=== PATIENT | female | born 1990 | race Two or more races ===

== ENCOUNTER → 2017-01-15 | Outpatient (REF) | payer OTHER | LOC: M SFHCLERA 17:06 | PROVIDERS: ATTEND Nurse Practitioner Family | DX: N89.8 Other specified noninflammatory disorders of vagina (principal) ==

== ENCOUNTER 2017-11-20 09:45 | Day surgery (SDC) | payer OTHER ==
[2017-11-20 10:45] LABS: HEMATOCRIT 41.1 % (36.0-47.0); HEMOGLOBIN 14.4 g/dl (12.0-15.5)
[2017-11-20 10:53] LABS: CONTROL LINE HCG INT CTR LINE PRESENT; HCG, SERUM QUALITATIVE NEGATIVE (NEGATIVE)
[2017-11-20] MEDS: LR 1,000 ML IV (11:05)
[2017-11-20] MEDS ORDERED: MIDAZOLAM INJ 2 MG/2 ML VIAL (J2250) As Ordered (11:56)
[2017-11-20] MEDS ORDERED: fentaNYL 100 MCG/2 ML INJECTION (J3010) As Ordered ×4 (11:56→15:00)
[2017-11-20] MEDS ORDERED: BUPIVACAINE HCL 0.25% 10 ML VIAL As Ordered (12:30)
[2017-11-20] MEDS ORDERED: ROCURONIUM BROMIDE 50 MG/5 ML VIAL As Ordered (13:04)
[2017-11-20] MEDS ORDERED: LIDOCAINE 2% INJ 100 MG/5 ML SDV (FOR ANES.) As Ordered (13:04)
[2017-11-20] MEDS ORDERED: KETOROLAC 60 MG/2 ML VIAL (J1885) As Ordered (13:04)
[2017-11-20] MEDS ORDERED: PROPOFOL 200 MG/20 ML VIAL As Ordered (13:04)
[2017-11-20] MEDS ORDERED: ONDANSETRON 4MG/2ML VIAL (J2405) As Ordered (13:05)
[2017-11-20] MEDS ORDERED: dexameTHASONE 4 MG/ML 1ML VIAL (J1100) As Ordered (13:05)
[2017-11-20] MEDS ORDERED: SUGAMMADEX SODIUM 500 MG/5 ML VIAL (BRIDION) As Ordered (13:34)
[2017-11-20] MEDS ORDERED: LR 1,000 ML IV (14:45)
[2017-11-20] MEDS ORDERED: ONDANSETRON 4MG/2ML VIAL (J2405) IV (14:45)
[2017-11-20] MEDS ORDERED: KETOROLAC 30 MG/ML VIAL (J1885) As Ordered (15:00)
[2017-11-20] MEDS: fentaNYL 100 MCG/2 ML INJECTION (J3010) IV (15:09)
[2017-11-20] MEDS: KETOROLAC 30 MG/ML VIAL (J1885) IV (15:12)
[2017-11-20] MEDS ORDERED: PERCOCET 5MG/325MG TAB PO (15:15)
== END 2017-11-20 16:35 | disposition home or self-care (01) ==
LOC: M SDC 09:45
DX: Z30.2 Encounter for sterilization (principal); K21.9 Gastro-esophageal reflux disease without esophagitis; F41.9 Anxiety disorder, unspecified; Z79.899 Other long term (current) drug therapy
CPT/HCPCS: 58661

== ENCOUNTER → 2018-09-01 | Outpatient (REF) | payer OTHER ==
[~2018-09-01] MED LIST: ALPR0.5T3; DEPO150I; VALA1TAB2; ZOLP5TAB
== END ==
LOC: M SFHCLERA 09:50
PROVIDERS: ATTEND Nurse Practitioner Family
DX: R53.81 Other malaise (principal)

== ENCOUNTER → 2018-12-01 | Outpatient (REF) | payer OTHER | LOC: M SFHCLERA 15:20 | PROVIDERS: ATTEND Nurse Practitioner Family | DX: J02.9 Acute pharyngitis, unspecified (principal) ==

== ENCOUNTER → 2019-02-27 | Outpatient (REF) | payer OTHER ==
[~2019-02-27] MED LIST changes: -VALA1TAB2; +VALA1TAB64
[2019-02-27 20:11] LABS: CHLAMYDIA DNA AMPLIFICATION NEGATIVE (NEGATIVE); GC DNA AMPLIFICATION NEGATIVE (NEGATIVE)
== END ==
LOC: M SFHCLERA 12:15
PROVIDERS: ATTEND Nurse Practitioner Family
DX: N89.8 Other specified noninflammatory disorders of vagina (principal)
CPT/HCPCS: 81002; 81025; 87070; 87077; 87086; 87661; G0463

== ENCOUNTER → 2019-05-26 | Outpatient (REF) | payer OTHER ==
[~2019-05-26] MED LIST changes: +VALA1TAB2; -VALA1TAB64
[2019-05-26 22:00] LABS: CHLAMYDIA DNA AMPLIFICATION NEGATIVE (NEGATIVE); GC DNA AMPLIFICATION NEGATIVE (NEGATIVE)
== END ==
LOC: M SFHCLERA 17:09
PROVIDERS: ATTEND Nurse Practitioner Family
DX: R30.9 Painful micturition, unspecified (principal); N89.8 Other specified noninflammatory disorders of vagina
CPT/HCPCS: 81002; 81025; 87070; 87077; 87086; 87186; 87661; G0463

== ENCOUNTER → 2019-07-18 | Outpatient (REF) | payer OTHER ==
[~2019-07-18] MED LIST changes: -VALA1TAB2; +VALA1TAB64
[2019-07-18 11:57] LABS: MONO REFLEX EBV COMP NEGATIVE (NEGATIVE)
[2019-07-19 15:07] LABS: EBV AB TO NUCLEAR ANTIGEN >600.0 U/mL (0.0-17.9); EBV VIRAL CAPSID AG IgM <36.0 U/mL (0.0-35.9)
== END ==
LOC: M LABDRAW1 09:36
PROVIDERS: ATTEND Physician Assistant Medical
DX: R53.81 Other malaise (principal)

== ENCOUNTER → 2019-08-28 | Outpatient (CLI) | payer OTHER, SELFPAY ==
[~2019-08-28] MED LIST changes: +GASTROGRAFIN SOLUTION 30ML (Q9963) As Ordered ONE; +ISOVUE-370 76% 100ML VIAL (Q9967) As Ordered ONE; +VALA1TAB5; -VALA1TAB64
--- NOTE | 2019-08-29 09:03 | REP ---
CT PELVIS WITH IV CONTRAST: HISTORY: Right lower quadrant abdominal swelling and mass. Abdominal wall mass right lower quadrant. The patient gives a history of prior tubal ligation and section. CT CONTRAST DOSE: 100 mL of intravenous Isovue 370 is administered. No comparison study. CT FINDINGS: Digital preliminary shoe planner radiograph shows an unremarkable bowel gas pattern. Axial CT images demonstrate an irregular small soft tissue mass in the deep subcutaneous fat in the right inguinal region anterior to the abdominal wall. This measures 2.6 x 2.2 x 2.5 cm in diameter. It appears to extend to the superficial border of the anterior abdominal wall musculature. It has somewhat irregular margins and appears to show mild enhancement homogeneously. 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 There is no evidence of abdominal wall defect or hernia. No ovarian or uterine lesion is seen. Urinary bladder is unremarkable. Small and large bowel loops are unremarkable. Normal appendix is visible in the right lower quadrant. Bone window settings demonstrate a unilateral pars defect on the right and L5 without spondylolisthesis. No other bony abnormality is seen. IMPRESSION: There is a 2.6 cm irregularly shaped enhancing soft tissue mass in the deep subcutaneous fat of the right inguinal region most consistent with abdominal desmoid tumor. Differential possibilities may include extra-abdominal endometriosis implant. Otherwise negative. Electronically Signed by Ken Lawson MD 08/29/2019 09:43 A
== END ==
LOC: M RAD 16:03
PROVIDERS: ATTEND Surgery
DX: R19.03 Right lower quadrant abdominal swelling, mass and lump (principal)
CPT/HCPCS: 72193; Q9963; Q9967

== ENCOUNTER → 2019-10-08 | Outpatient (REF) | payer OTHER ==
[~2019-10-08] MED LIST changes: -ALPR0.5T3; +ALPR0.5T3 PO; -GASTROGRAFIN SOLUTION 30ML (Q9963) As Ordered ONE; +HYDR-643 PO; -ISOVUE-370 76% 100ML VIAL (Q9967) As Ordered ONE
== END ==
LOC: M LAB REF 16:51
PROVIDERS: ATTEND Family Medicine
DX: N76.0 Acute vaginitis (principal)

== ENCOUNTER → 2019-11-03 | Outpatient (CLI) | payer OTHER ==
[~2019-11-03] MED LIST changes: +ECOT81TA5 PO
== END ==
LOC: M LABSMTC 11:10
PROVIDERS: ATTEND Anesthesiology
DX: Z01.818 Encounter for other preprocedural examination (principal); Z11.59 Encounter for screening for other viral diseases

== ENCOUNTER 2019-11-06 05:59 | Day surgery (SDC) | payer OTHER ==
[~2019-11-06] VITALS: Ht 170.2 cm; Wt 95.0 kg
[~2019-11-06 05:59] MED LIST changes: +LR 1,000 ML IV ONE; +ceFAZolin SOD 1 GM in D5W MINI-BAG PLUS 50 ML IV ONE
[2019-11-06] MEDS ORDERED: LIDOCAINE 1% MDV 20ML VIAL SQ PRN (06:00)
[2019-11-06] MEDS ORDERED: ceFAZolin SOD 1 GM in D5W MINI-BAG PLUS 50 ML IV ONE (06:00)
[2019-11-06] MEDS ORDERED: LR 1,000 ML IV ONE (07:00)
[2019-11-06] MEDS ORDERED: LIDOCAINE 2% 100MG/5ML SDV (FOR ANES.) As Ordered ONE (07:27)
[2019-11-06] MEDS ORDERED: ROCURONIUM BROMIDE 50 MG/5 ML VIAL As Ordered ONE (07:28)
[2019-11-06] MEDS ORDERED: dexameTHASONE 4 MG/ML 1ML VIAL (J1100 PER 1MG) As Ordered ONE (07:28)
[2019-11-06] MEDS ORDERED: ONDANSETRON 4MG/2ML VIAL As Ordered ONE (07:28)
[2019-11-06] MEDS ORDERED: propofoL 200 MG/20 ML VIAL As Ordered ONE (07:28)
[2019-11-06] MEDS ORDERED: fentaNYL 250 MCG/5 ML INJECTION (J3010) As Ordered ONE (07:32)
[2019-11-06] MEDS ORDERED: MIDAZOLAM INJ 2MG/2ML VIAL (J2250 PER 1MG) As Ordered ONE (07:33)
[2019-11-06] MEDS ORDERED: BUPIVACAINE LIPOSOME/PF 1.3% 20ML VIAL (13.3MG/ML)(EXPAREL)(C9290 PER1MG) As Ordered ONE (07:50)
[2019-11-06] MEDS: BUPIVACAINE/EPIN 0.25% 30 ML VIAL As Ordered ONE ×2 (07:58→08:21)
[2019-11-06] MEDS ORDERED: ACETAMINOPHEN 1000MG 100ML IV BTL (OFIRMEV) (J0131 PER 10MG) As Ordered ONE (08:05)
[2019-11-06] MEDS ORDERED: SUGAMMADEX SODIUM 500 MG/5 ML VIAL (BRIDION) As Ordered ONE (08:05)
[2019-11-06] MEDS ORDERED: KETOROLAC 60 MG/2 ML VIAL As Ordered ONE (08:06)
[2019-11-06] MEDS ORDERED: HYDROMORPHONE HCL 0.5 MG/ 0.5 ML SYRINGE (J1170 PER 1) IV PRN (09:00)
[2019-11-06] MEDS ORDERED: ONDANSETRON 4MG/2ML VIAL IV PRN ×2 (09:00)
[2019-11-06] MEDS ORDERED: fentaNYL 100 MCG/2 ML INJECTION (J3010) IV PRN (09:00)
[2019-11-06] MEDS ORDERED: LR 1,000 ML IV SCH ×2 (09:00)
[2019-11-06] MEDS ORDERED: PERCOCET 5MG/325MG TAB PO PRN ×2 (09:00→10:15)
--- NOTE | 2019-11-06 09:05 | RO ---
DATE OF PROCEDURE: 11/06/2019 PREOPERATIVE DIAGNOSIS: Right lower quadrant abdominal wall mass, question endometrioma. POSTOPERATIVE DIAGNOSIS: Right lower quadrant abdominal wall mass, question endometrioma. PROCEDURE: Excision of right lower quadrant abdominal wall mass. SURGEON: Brooks Ross MD [employer] VICE PRESIDENT: Zara Cota NP (provided retraction, exposure and visualization. ESTIMATED BLOOD LOSS (EBL): Minimal. FLUIDS: Crystalloid. BRIEF PROCEDURE SUMMARY: The patient was brought to the operating room, was given general anesthesia. After adequate anesthesia and preoperative antibiotics were given, the patient was prepped and draped in the usual sterile fashion. Next an incision just above her (C) section incision was made on the right-hand side and electrocautery was used to cut through skin and subcutaneous tissue. Because of the thick wall of the abdominal fat in this area did need to extend the incision a little bit further to adequately get around this lesion. Using my hand/palpation I was stay able to stay outside of the dissection isolating the lesion from the surrounding tissue making sure that we had adequate margins around the area. Circumferentially, we went on this medial, inferior laterally and eventually when we get to the posterior aspect of this it was down to the level of the external oblique muscle fascia. However, it did not seem to extend through the muscle fascia. Thus, we are able to stay on the muscle fascia surface and remove the lesion in its entirety. The area was copiously irrigated until clear. The deep subcutaneous tissue was brought together with #2-0 Vicryl. #3-0 Vicryl was used to approximate the dermis. #4-0 Vicryl was used to approximate the skin. Steri-Strips and a dry sterile dressing was applied. The patient was awakened from her anesthesia, extubated, brought to the recovery room awake, alert, hemodynamically stable. Sponge and needle counts correct times two.
[2019-11-06] MEDS ORDERED: oxyCODONE 5MG TAB PO PRN (10:15)
[2019-11-06 12:00] VITALS: BP 110/62
[2019-11-06] MEDS ORDERED: KETOROLAC 30 MG/ML 1ML VIAL IV SCH (14:00)
== END 2019-11-06 12:41 | disposition home or self-care (01) ==
LOC: M SDC 05:59
PROVIDERS: ATTEND Surgery
DX: N80.8 Other endometriosis (principal); K21.9 Gastro-esophageal reflux disease without esophagitis; D68.2 Hereditary deficiency of other clotting factors; L71.9 Rosacea, unspecified; F41.9 Anxiety disorder, unspecified; Z87.891 Personal history of nicotine dependence; Z88.5 Allergy status to narcotic agent; Z79.899 Other long term (current) drug therapy; Z79.82 Long term (current) use of aspirin
CPT/HCPCS: 22901; 88307; C9290; J0131; J0690; J1100; J1170; J1885; J2250; J2405; J3010

== ENCOUNTER → 2020-04-12 | Outpatient (REF) | payer OTHER ==
[~2020-04-12] MED LIST changes: -LR 1,000 ML IV ONE; -ceFAZolin SOD 1 GM in D5W MINI-BAG PLUS 50 ML IV ONE
== END ==
LOC: M LAB REF 16:54
PROVIDERS: ATTEND Family Medicine
DX: N76.0 Acute vaginitis (principal)

== ENCOUNTER → 2020-06-23 | Outpatient (CLI) | payer SELFPAY | LOC: M LABSMTC 11:38 | PROVIDERS: ATTEND Pediatrics | DX: Z20.828 Contact with and (suspected) exposure to other viral communicable diseases (principal) ==

== ENCOUNTER → 2020-07-21 | Outpatient (CLI) | payer SELFPAY | LOC: M LABSMTC 11:34 | PROVIDERS: ATTEND Pediatrics | DX: Z20.822 Contact with and (suspected) exposure to COVID-19 (principal) ==